=== PATIENT | male | born 1985 | race Caucasian/White ===

== ENCOUNTER 2018-02-08 23:11 | Emergency (ER) | payer MEDICARE, MEDICAID ==
[~2018-02-08] VITALS: Ht 190.5 cm; Wt 84.4 kg
[2018-02-08] MEDS ORDERED: DEPAKOTE (23:21)
[2018-02-08] MEDS ORDERED: VRAYLAR (23:21)
--- NOTE | 2018-02-08 23:30 | NUR ---
Dr. Pruett at bedside for MSE.
--- NOTE | 2018-02-08 23:41 | NUR ---
Patient discharged to home in stable conditon. Written and verbal after care instructions given. Patient verbalizes understanding of instructions. Pt ambulated out of ER with steady gait, no acute signs of distress, VSS, all belongings taken.
[2018-02-08 23:42] VITALS: BP 155/96
== END 2018-02-08 23:55 | disposition home or self-care (01) ==
LOC: ER 23:18
DX: J20.9 Acute bronchitis, unspecified (principal); Z90.89 Acquired absence of other organs
CPT/HCPCS: A4663

== ENCOUNTER 2019-02-14 11:25 | Emergency (ER) | payer MEDICAID, MEDICARE ==
[~2019-02-14] VITALS: Ht 188 cm; Wt 83.9 kg
[~2019-02-14 11:25] MED LIST: DEPAKOTE; VRAYLAR
[2019-02-14] MEDS ORDERED: CARI3CAP PO (11:46)
[2019-02-14] MEDS ORDERED: DIVA500T2 PO (11:46)
[2019-02-14 12:48] VITALS: BP 155/86
== END 2019-02-14 12:52 | disposition home or self-care (01) ==
LOC: ER 11:25
DX: H20.21 Lens-induced iridocyclitis, right eye (principal); F17.200 Nicotine dependence, unspecified, uncomplicated; Z90.89 Acquired absence of other organs; Z79.899 Other long term (current) drug therapy
CPT/HCPCS: A4663

== ENCOUNTER 2020-02-09 03:19 | Emergency (ER) | payer MEDICARE ==
[~2020-02-09] VITALS: Ht 190.5 cm; Wt 86.2 kg
[~2020-02-09 03:19] MED LIST changes: +CARI3CAP PO; +DIVA500T2 PO
--- NOTE | 2020-02-09 03:31 | NUR ---
REY WEBBER at [facility] for MSE
[2020-02-09] MEDS ORDERED: HYDROMORPHONE 2 MG/1 ML DISP.SYRIN ONE (03:39)
[2020-02-09] MEDS ORDERED: ONDANSETRON ODT 4 MG TAB.RAPDIS ONE (03:39)
--- NOTE | 2020-02-09 03:41 | NUR ---
Xray noted in room at this time
--- NOTE | 2020-02-09 03:42 | NUR ---
redness noted to left ankle, able to feel sensation and wiggle toes slightly, pedal pulses present
[2020-02-09] MEDS ORDERED: HYDROMORPHONE 1 MG/1 ML DISP.SYRIN IM ONE (03:45)
[2020-02-09] MEDS ORDERED: ONDANSETRON ODT 4 MG TAB.RAPDIS SL ONE (03:45)
--- NOTE | 2020-02-09 05:05 | NUR ---
Patient instructed on how use crutches properly, requested mickey mondragon at this time Addendum: 02/09/20 at 0524 by NORMA fiberglass cast applied to left leg/ankle/foot, no complaints of discomfort
--- NOTE | 2020-02-09 05:22 | NUR ---
Patient discharged to home in stable condition. Noted ambulating to taxi with crutches in a steady manner. Rx given. instructed to follow up with MD Ervin. Written and verbal after care instructions given. Patient verbalizes understanding of instructions. Stressed follow up or return to ER for worsening s/s.
[2020-02-09 05:25] VITALS: BP 152/86
== END 2020-02-09 06:00 | disposition home or self-care (01) ==
LOC: ER 03:25
DX: S93.402A Sprain of unspecified ligament of left ankle, initial encounter (principal); X50.1XXA Overexertion from prolonged static or awkward postures, initial encounter; Y93.89 Activity, other specified; Y92.89 Other specified places as the place of occurrence of the external cause; F31.9 Bipolar disorder, unspecified; F17.200 Nicotine dependence, unspecified, uncomplicated
CPT/HCPCS: 29515; 73590; 73610; 73630; 96372; 99284; 99406; J1170; A4663; Q0162

== ENCOUNTER 2023-02-06 19:38 | Inpatient (IN) | payer OTHER ==
[~2023-02-06] VITALS: Ht 188 cm; Wt 86.2 kg
[2023-02-06] MEDS ORDERED: SWABABLE VALVE TRANSFER SET EA MC ONE (20:11)
[2023-02-06] MEDS ORDERED: IOHEXOL 300MG/ML 100 ML INFUS..BTL ONE (20:11)
[2023-02-06] MEDS ORDERED: IV NORMAL SALINE 250 ML IV ONE (20:12)
[2023-02-06] MEDS ORDERED: HYDROMORPHONE 1 MG/1 ML DISP.SYRIN IV ONE ×2 (20:15→22:00)
[2023-02-06] MEDS ORDERED: LORAZEPAM 2 MG/1 ML VIAL IV ONE (20:15)
[2023-02-06] MEDS ORDERED: IV NORMAL SALINE 1000 ML BAG IV ONE (20:15)
[2023-02-06] MEDS ORDERED: ONDANSETRON 4 MG/2 ML VIAL IV ONE (20:15)
[2023-02-06] MEDS ORDERED: ONDANSETRON 4 MG/2 ML VIAL ONE (20:35)
[2023-02-06] MEDS ORDERED: HYDROMORPHONE 1 MG/1 ML DISP.SYRIN ONE ×2 (20:36→21:59)
[2023-02-06] MEDS ORDERED: LORAZEPAM 2 MG/1 ML VIAL ONE (20:36)
[2023-02-06 20:54] LABS: HEMATOCRIT 44.6 % (36.7-47.1); MEAN CORPUSCULAR HEMOGLOBIN 29.8 uug (23.8-33.4); PLATELET COUNT (AUTO) 370 K/uL (152-348)
--- NOTE | 2023-02-06 21:05 | NUR ---
Patient taken to CT via [place] accompanied by
[2023-02-06 21:46] LABS: CREATININE 1.1 mg/dL (0.6-1.3); POTASSIUM 3.6 mmol/L (3.5-5.1)
[2023-02-06 21:52] LABS: BILIRUBIN,DIRECT 0.1 mg/dL (0.0-0.2); BILIRUBIN,TOTAL 0.3 mg/dL (0.2-1.0); TOTAL PROTEIN, SERUM 8.9 g/dL (6.4-8.2)
[2023-02-06] MEDS ORDERED: METO-357 PO (22:12)
[2023-02-06] MEDS ORDERED: LUMA42CA PO (22:12)
--- NOTE | 2023-02-06 22:44 | NUR ---
Called [facility] for panel call. Dr. Rodriguez waiting for call back.
--- NOTE | 2023-02-06 23:20 | NUR ---
Patient has been accepted by Dr. Rodriguez. Pending admission.
[2023-02-06 23:52] LABS: *BILIRUBIN,URIN NEGATIVE (NEGATIVE); *CLARITY,URINE CLEAR (CLEAR); *COLOR,URINE YELLOW (YELLOW); *UROBILINOGEN,URINE 0.2 E.U./dl (NORMAL); LEUKOCYTE ESTERASE ,URINE NEGATIVE (NEGATIVE); NITRITE, URINE NEGATIVE (NEGATIVE); UGLUCOSE NEGATIVE (NEGATIVE)
[2023-02-07 00:01] LABS: *AMPHETAMINE, URINE NEGATIVE (NEGATIVE); *CANNABINOID, URINE NEGATIVE (NEGATIVE); *COCCAINE, URINE NEGATIVE (NEGATIVE); *PHENCYCLIDINE SCREEN,URINE NEGATIVE (NEGATIVE)
[2023-02-07 00:02] LABS: *BLOOD, URINE NEGATIVE (NEGATIVE); *KETONES,URINE NEGATIVE (NEGATIVE)
--- NOTE | 2023-02-07 00:07 | NUR ---
Report given to Carlos GATES third floor.
[2023-02-07] MEDS ORDERED: MORPHINE SULFATE 2 MG/1 ML DISP.SYRIN IV PRN (01:15)
[2023-02-07] MEDS ORDERED: ONDANSETRON 4 MG/2 ML VIAL IV PRN (01:15)
[2023-02-07] MEDS ORDERED: IV D5/ 0.9% NACL 1,000 ML IV PRN (01:15)
[2023-02-07] MEDS ORDERED: LORAZEPAM 2 MG/1 ML VIAL IV PRN (01:15)
--- NOTE | 2023-02-07 01:15 | NUR ---
Patient taken to third floor med surg room 317 via gurney with personal belongings. Patient in stable condition, no signs of distress noted. Carlos GATES aware of patient's arrival.
[2023-02-07 06:47] LABS: MEAN CORPUSCULAR HEMOGLOBIN 29.6 uug (23.8-33.4); MEAN CORPUSCULAR VOLUME 87.2 fL (73.0-96.2); PLATELET COUNT (AUTO) 301 K/uL (152-348)
[2023-02-07 07:00] LABS: BILIRUBIN,TOTAL 0.7 mg/dL (0.2-1.0); CREATININE 0.9 mg/dL (0.6-1.3); MAGNESIUM 2.2 mg/dL (1.8-2.4); PHOSPHOROUS 4.3 mg/dL (2.5-4.9); POTASSIUM 4.3 mmol/L (3.5-5.1); TOTAL PROTEIN, SERUM 7.2 g/dL (6.4-8.2)
[2023-02-07 08:00] VITALS: BP 121/79; TEMP 97.8; O2SAT 100
[2023-02-07] MEDS ORDERED: PANTOPRAZOLE SODIUM 40 MG VIAL IV SCH (09:00)
[2023-02-07 11:03] VITALS: BP 118/69; TEMP 98.3; O2SAT 99
[2023-02-07 11:23] VITALS: BP 118/69; TEMP 98.3; O2SAT 99
[2023-02-07] MEDS ORDERED: DIVA500T4 PO (11:59)
--- NOTE | 2023-02-07 12:00 | NUR ---
Patient complaining of abdominal pain dull pain on and off, with headache and light chest pain on and off. Informed Mary Santiago [employer]. Patient can also start clear liquids. Observed for any untoward signs and symptoms. Attended
[2023-02-07 12:28] VITALS: BP 146/67; TEMP 98.3; O2SAT 100
[2023-02-07 16:02] VITALS: BP 125/70; TEMP 98; O2SAT 98
--- NOTE | 2023-02-07 16:30 | NUR ---
Patient requested to leave the hospital, AMA form signed. Informed Ms. Mary Núñez HOOD MAKER, Removed IV catheter clean and dry. Assisted patient to go down ambulatory, vital signs are stable. Attended Discharge at 1635
[2023-02-08] MEDS ORDERED: NICOTINE 21 MG/24HR PATCH TD SCH (09:00)
== END 2023-02-07 16:35 | disposition left against medical advice (07) | DRG 392 ==
LOC: ER 19:39 → MEDSURG3 23:00
PROVIDERS: ADMIT Nurse Practitioner Acute Care; ATTEND Nurse Practitioner Acute Care
DX: A08.4 Viral intestinal infection, unspecified (principal); F31.9 Bipolar disorder, unspecified; F41.9 Anxiety disorder, unspecified; F17.290 Nicotine dependence, other tobacco product, uncomplicated; I10 Essential (primary) hypertension
CPT/HCPCS: 36415; 71045; 83605; 83690; 83735; 84100; 85025; 93005; A4663; C9113; G0378; J1170; J2060; J2405; J7040; J7042; Q9967

== ENCOUNTER 2025-05-18 02:10 | Emergency (ER) | payer OTHER ==
[~2025-05-18] VITALS: Ht 190.5 cm; Wt 83.0 kg
[~2025-05-18 02:10] MED LIST changes: -CARI3CAP PO; -DEPAKOTE; -DIVA500T2 PO; +DIVA500T4 PO; +LUMA42CA4 PO; +METO-357 PO; -VRAYLAR
[2025-05-18 02:12] VITALS: BP 168/106
== END 2025-05-18 02:56 | disposition left against medical advice (07) ==
LOC: ER 02:23
DX: S06.0X0A Concussion without loss of consciousness, initial encounter (principal); S01.112A Laceration without foreign body of left eyelid and periocular area, initial encounter; S05.12XA Contusion of eyeball and orbital tissues, left eye, initial encounter; F17.290 Nicotine dependence, other tobacco product, uncomplicated; F31.9 Bipolar disorder, unspecified; H11.32 Conjunctival hemorrhage, left eye; Z79.899 Other long term (current) drug therapy; Z88.7 Allergy status to serum and vaccine; Z90.89 Acquired absence of other organs; Y04.0XXA Assault by unarmed brawl or fight, initial encounter; Y93.89 Activity, other specified; Y92.89 Other specified places as the place of occurrence of the external cause; Y99.9 Unspecified external cause status
CPT/HCPCS: A4606; A4663

== ENCOUNTER 2025-05-18 09:55 | Emergency (ER) | payer OTHER ==
[~2025-05-18] VITALS: Ht 190.5 cm; Wt 83.0 kg
[~2025-05-18 09:55] MED LIST changes: +LUMA42CA PO; -LUMA42CA4 PO
[2025-05-18 10:06] VITALS: BP 157/88
[2025-05-18] MEDS ORDERED: ACETAMINOPHEN 500 MG TABLET ONE (10:33)
[2025-05-18] MEDS ORDERED: IBUPROFEN 400 MG TABLET ONE (10:34)
[2025-05-18] MEDS: ACETAMINOPHEN 500 MG TABLET PO ONE (10:35)
[2025-05-18] MEDS: IBUPROFEN 400 MG TABLET PO ONE (10:35)
[2025-05-18 12:07] VITALS: BP 136/79; O2SAT 100
== END 2025-05-18 12:07 | disposition home or self-care (01) ==
LOC: ER 09:55
DX: S05.12XA Contusion of eyeball and orbital tissues, left eye, initial encounter (principal); F17.290 Nicotine dependence, other tobacco product, uncomplicated; Q13.2 Other congenital malformations of iris; Z79.899 Other long term (current) drug therapy; Z88.7 Allergy status to serum and vaccine; Z90.89 Acquired absence of other organs; Y04.0XXA Assault by unarmed brawl or fight, initial encounter; Y93.89 Activity, other specified; Y92.89 Other specified places as the place of occurrence of the external cause; Y99.8 Other external cause status
CPT/HCPCS: 70450; A4606; A4663; A9150